=== PATIENT | female | born 1990 | race Caucasian/White ===

== ENCOUNTER 2023-11-06 09:27 | Emergency (ER) | payer OTHER, SELFPAY ==
[2023-11-06 09:49] VITALS: BP 124/83; PULSE 108; RESP 16; TEMP 36.8; O2SAT 100
--- NOTE | 2023-11-06 09:52 | ED.URI ---
HPI - URI/Sore Throat General Chief Complaint: Upper Respiratory Infection Stated Complaint: body aches,it hurts to swallow Time Seen by Provider: 11/06/23 09:52 Source: patient Mode of arrival: ambulatory Limitations: no limitations History of Present Illness HPI Narrative: Beth is a 33-year-old female patient presenting to the clinic today with complaints of body aches and sore throat x3 days. She reports no known fever. MD elicited complaint: sore throat and other (Body aches) Related Data Home Medications Medication Instructions Recorded Confirmed duloxetine 60 mg capsule,delayed mg PO 11/06/23 release lisdexamfetamine 20 mg capsule mg 11/06/23 vortioxetine 10 mg tablet mg 11/06/23 (Trintellix) Allergies Allergy/AdvReac Type Severity Reaction Status Date / Time No Known Allergies Allergy Verified 11/06/23 09:57 Review of Systems Review of Systems: Pertinent positives per HPI. Patient denies any fever, chills, rash, headache, visual changes, dizziness, cough, shortness of breath, chest pain, palpitations, nausea, vomiting, diarrhea, constipation, abdominal pain, or any urinary issues. [facility] Comments At the time of my signature, I reviewed and agree with the nursing past medical, surgical, social, and family history. There is no relevant family history pertinent to the patient complaint. Exam Narrative: General: Well-developed, well nourished, in no apparent distress Head: Normocephalic, atraumatic Eyes: Pupils equally round and reactive to light bilaterally, EOM intact, sclera and conjunctive clear, no discharge, lids normal Ears: TMs intact and clear, ear canals clear, no drainage, grossly hearing normal. Nose: Nares patent, no discharge, no inflammation, no sinus tenderness. Mouth: Oral pharynx red with bilateral tonsillar enlargement and exudate without lesions or masses, good dentition, MMM. Neck: Supple, trachea midline, enlargement of anterior cervical nodes, no thyroid masses or goiter palpable. Cardio: Regular rate and rhythm, s1 and s2 normal, no murmur appreciated. Resp: Clear to auscultation bilaterally, no rhonchi, rales, wheezing or rubs Course Course Emergency Course: Portions of this record may have been created with voice recognition software. Level of Care: Express Care Visit Vital Signs Vital signs: Vital Signs Temperature 36.8 C 11/06/23 09:49 Pulse Rate 108 H 11/06/23 09:49 Respiratory Rate 16 11/06/23 09:49 Blood Pressure 124/83 11/06/23 09:49 Pulse Oximetry 100 11/06/23 09:49 Temperature 36.8 C 11/06/23 09:49 Pulse Rate 108 H 11/06/23 09:49 Respiratory Rate 16 11/06/23 09:49 Blood Pressure 124/83 11/06/23 09:49 Pulse Oximetry 100 11/06/23 09:49 Vital signs reviewed MDM - URI/Sore Throat MDM Narrative Medical decision making narrative: At the time of visit patient is resting comfortably on the exam table. Patient appears to be nontoxic. Supportive measures were discussed with the patient and they voiced understanding discharge instructions and agrees to treatment plan. Return precautions reviewed Differential Diagnosis Differential diagnosis: Likely upper respiratory infection, otitis media, sinusitis, viral infection, bronchitis, influenza, pharyngitis and other (COVID) Discharge Plan Discharge Clinical Impression: Acute streptococcal pharyngitis Patient Disposition: Home, Self-Care Condition: Stable Instructions: Antibiotic Form, Strep Throat (ED) Additional Instructions: Strep test was positive. Take prescription medications only as prescribed-amoxicillin Change your toothbrush and 24 hours after initiation of the antibiotics Increase fluids and stay well hydrated Tylenol/motrin for pain/fever Flonase and OTC antihistamines as directed Vicks vapor rub to open sinuses Sinus rinses for congestion Cepacol spray, cough drops, throat lozenges, warm tea with honey/lemon, ga
== END 2023-11-06 10:12 | disposition home or self-care (01) ==
PROVIDERS: Emergency Provider Nurse Practitioner Family; PCP Family Medicine
DX: J02.0 Streptococcal pharyngitis (principal)
CPT/HCPCS: 87880; 99213; G0463

== ENCOUNTER 2023-11-24 16:05 | Emergency (ER) | payer OTHER, SELFPAY ==
--- NOTE | 2023-11-24 16:07 | ED.NAVMDI ---
HPI - Nausea/Vomiting/Diarrhea General Chief complaint: Dizziness Stated complaint: NAUSEA/DIZZY Time Seen by Provider: 11/24/23 16:07 Source: patient and RN notes reviewed History of Present Illness HPI Narrative: Patient is a 33-year-old female who presents to urgent care with complaints of loose stools for the last 3 days and some dizziness and nausea that started today. Patient states after going her symptoms she checked her blood pressure and her blood pressure was high. Patient does not have a history of high blood pressure however she has recently been unable to get her Vyvanse for the last month and a half and was taken off the medication cold turkey due to inability to find the medication at the pharmacy. Patient states she has had heightened stress and anxiety since being off the medication and has been taking the Cymbalta as directed. Patient is tearful. Denies any abdominal pain or discomfort. Denies any vomiting. No other acute complaints. Patient aware of the plan of care. Some parts of this dictation were generated by voice recognition software and may contain typographical and/or grammatical inaccuracies. Related Data Home Medications Medication Instructions Recorded Confirmed duloxetine 60 mg capsule,delayed 60 mg PO DAILY 11/06/23 11/06/23 release lisdexamfetamine 20 mg capsule 20 mg PO DAILY 11/06/23 11/06/23 vortioxetine 10 mg tablet 10 mg PO DAILY 11/06/23 11/06/23 (Trintellix) Allergies Allergy/AdvReac Type Severity Reaction Status Date / Time No Known Allergies Allergy Verified 11/24/23 16:30 Review of Systems Review of Systems: CONSTITUTIONAL: Denies fever, chills, or sweats. EYES: Denies visual changes, redness, or discharge. ENT: Denies rhinorrhea, congestion, sore throat, or otalgia. CARDIOVASCULAR: Denies chest pain, palpitations, or edema. Reports of hypertension RESPIRATORY: Denies cough or dyspnea. GASTROINTESTINAL: Reports of intermittent nausea and loose stools GENITOURINARY: Denies dysuria or hematuria. SKIN: Denies rash or itching. MUSCULOSKELETAL: Denies back pain, joint pain, or myalgia. NEUROLOGIC: Denies headache, numbness, or weakness. Reports of intermittent dizziness All other systems reviewed are negative, except as documented in HPI. [facility] Comments At the time of my signature, I reviewed and agree with the nursing past medical, surgical, social, and family history. There is no relevant family history pertinent to the patient complaint. Exam Narrative: GENERAL: This is a well-nourished, well-developed patient, in no apparent distress. HEAD: normocephalic, atraumatic. EYES: PERRL. Sclera clear/white. Vision is grossly intact. EARS: External ears normal, auditory canals clear and without drainage, TMs normal without perforation. Hearing grossly intact. NOSE: External nose normal with no obvious nasal discharge, nares without redness, no rhinorrhea. THROAT: Mucous membranes moist NECK: Neck supple CARDIOVASCULAR: Regular rate and rhythm without RESPIRATORY: Clear to auscultation. Breath sounds equal bilaterally. No wheezes, rales, or rhonchi. GASTROINTESTINAL: Abdomen soft, non-tender, nondistended. Bowel sounds are active. SKIN: warm, intact with no suspicious lesions or rash, good texture and turgor. NEURO: awake, alert, and oriented to person, place and time. There were no obvious focal neurologic abnormalities. EXTREMITIES: No clubbing, cyanosis, or edema. Course Course Level of Care: Express Care Visit Vital Signs Vital signs: Vital Signs Temperature 98.1 F 11/24/23 16:18 Pulse Rate 88 11/24/23 16:18 Respiratory Rate 16 11/24/23 16:18 Blood Pressure 154/93 H 11/24/23 16:18 Pulse Oximetry 100 11/24/23 16:18 Temperature 98.1 F 11/24/23 16:18 Pulse Rate 88 11/24/23 16:18 Respiratory Rate 16 11/24/23 16:18 Blood Pressure 154/93 H 11/24/23 16:18 Pulse Oximetry 100 11/24/23 16:18 Reviewed- Patient is inf
[2023-11-24 16:18] VITALS: BP 154/93; PULSE 88; RESP 16; TEMP 36.7; O2SAT 100
== END 2023-11-24 17:00 | disposition home or self-care (01) ==
PROVIDERS: Emergency Provider Nurse Practitioner Family; PCP Family Medicine
DX: F41.9 Anxiety disorder, unspecified (principal); F90.9 Attention-deficit hyperactivity disorder, unspecified type
CPT/HCPCS: 99213; G0463

== ENCOUNTER 2024-04-16 12:03 | Emergency (ER) | payer OTHER, SELFPAY ==
[2024-04-16 12:09] VITALS: BP 124/85; PULSE 102; RESP 16; TEMP 36.9; O2SAT 98
--- NOTE | 2024-04-16 12:18 | ED.URI ---
HPI - URI/Sore Throat General Chief Complaint: Upper Respiratory Infection Stated Complaint: Strep Symptoms Time Seen by Provider: 04/16/24 12:15 Source: patient Mode of arrival: ambulatory Limitations: no limitations History of Present Illness HPI Narrative: Esha is a 34-year-old female patient presenting to the clinic today with complaints of sore throat, headache, fever, and body aches. She reports that time started yesterday. Her daughter was diagnosed with strep this week. MD elicited complaint: fever, sore throat and other (Headache) Related Data Home Medications Medication Instructions Recorded Confirmed duloxetine 60 mg capsule,delayed 60 mg PO DAILY 11/06/23 11/06/23 release lisdexamfetamine 20 mg capsule 20 mg PO DAILY 11/06/23 11/06/23 vortioxetine 10 mg tablet 10 mg PO DAILY 11/06/23 11/06/23 (Trintellix) Allergies Allergy/AdvReac Type Severity Reaction Status Date / Time No Known Allergies Allergy Verified 11/24/23 16:30 Review of Systems Review of Systems: Pertinent positives per HPI. Patient denies any fever, chills, rash,visual changes, dizziness, cough, shortness of breath, chest pain, palpitations, nausea, vomiting, diarrhea, constipation, abdominal pain, or any urinary issues. [facility] Comments At the time of my signature, I reviewed and agree with the nursing past medical, surgical, social, and family history. There is no relevant family history pertinent to the patient complaint. Exam Narrative: General: Well-developed, well nourished, in no apparent distress Head: Normocephalic, atraumatic Eyes: Pupils equally round and reactive to light bilaterally, EOM intact, sclera and conjunctive clear, no discharge, lids normal Ears: TMs intact and clear, ear canals clear, no drainage, grossly hearing normal. Nose: Nares patent, no discharge, no inflammation, no sinus tenderness. Mouth: Oral pharynx red without lesions or masses, good dentition, MMM. Neck: Supple, trachea midline, no enlargement of anterior or posterior cervical nodes, no thyroid masses or goiter palpable. Cardio: Regular rate and rhythm, s1 and s2 normal, no murmur appreciated. Resp: Clear to auscultation bilaterally, no rhonchi, rales, wheezing or rubs Course Course Emergency Course: Portions of this record may have been created with voice recognition software. Level of Care: Express Care Visit Vital Signs Vital signs: Vital Signs Temperature 36.9 C 04/16/24 12:09 Pulse Rate 102 H 04/16/24 12:09 Respiratory Rate 16 04/16/24 12:09 Blood Pressure 124/85 04/16/24 12:09 Pulse Oximetry 98 04/16/24 12:09 Temperature 36.9 C 04/16/24 12:09 Pulse Rate 102 H 04/16/24 12:09 Respiratory Rate 16 04/16/24 12:09 Blood Pressure 124/85 04/16/24 12:09 Pulse Oximetry 98 04/16/24 12:09 Vital signs reviewed MDM - URI/Sore Throat MDM Narrative Medical decision making narrative: At the time of visit patient is resting comfortably on the exam table. Patient appears to be nontoxic. Labs: Strep test was positive in the clinic today. Plan: I suspect patient has strep pharyngitis. Prescription for amoxicillin was sent to the pharmacy. Supportive measures were discussed with the patient and they voiced understanding discharge instructions and agrees to treatment plan. Return precautions reviewed Differential Diagnosis Differential diagnosis: Likely upper respiratory infection, otitis media, sinusitis, viral infection, bronchitis, influenza, pharyngitis and other Discharge Plan Discharge Clinical Impression: Acute streptococcal pharyngitis Patient Disposition: Home, Self-Care Condition: Stable Instructions: Antibiotic Form, Strep Throat (ED) Additional Instructions: Strep test was positive in the clinic today. Take prescription medications only as prescribed-amoxicillin Change your toothbrush in 24 hours after initiation of the antibiotics Increase fluid
== END 2024-04-16 12:27 | disposition home or self-care (01) ==
PROVIDERS: Emergency Provider Nurse Practitioner Family; PCP Family Medicine
DX: J02.0 Streptococcal pharyngitis (principal); F90.9 Attention-deficit hyperactivity disorder, unspecified type
CPT/HCPCS: 87880; 99213; G0463

== ENCOUNTER 2024-08-14 17:35 | Emergency (ER) | payer OTHER, SELFPAY ==
--- NOTE | ~2024-08-14 | XR_ITS ---
XR ankle RT min 3V Ordering provider: Brooek Wilhelm APRN History: . right lateral foot and ankle pain fell off curb today . Comparison: None. FINDINGS: BONES: No acute fracture or dislocation. Small bony fragment is seen near to the lateral malleolus mo st likely old fracture. Clinical correlation and follow-up advised. JOINT SPACES: Normal. SOFT TISSUES: Normal. IMPRESSION: No definite acute osseous abnormality of the right ankle. Small bony fragment seen near to the latera l malleolus tip most likely old fracture. Clinical correlation for tenderness in the area and follow- up is advised. Reviewed, dictated and finalized at location A. IMPRESSION: No definite acute osseous abnormality of the right ankle. Small bony fragment s een near to the lateral malleolus tip most likely old fracture. Clinical correl ation for tenderness in the area and follow-up is advised.
--- NOTE | ~2024-08-14 | XR_ITS ---
XR foot RT min 3V Ordering provider: Brooke Wilhelm APRN History: . right lateral foot/ ankle pain. fell off curb today . Comparison: None. FINDINGS: BONES: No definite acute fracture or dislocation. Well-corticated bone fragment is seen near to the c uboid bone which is most likely an old fracture or sesamoid bone. Evaluation for tenderness in the ar ea follow-up is advised. JOINT SPACES: Normal. No tarsal coalition. SOFT TISSUES: Normal. IMPRESSION: No definite acute osseous abnormality of the right foot. Small bony fragment near to the cuboid bone may be sesamoid bone. Follow-up advised. Reviewed, dictated and finalized at location A. IMPRESSION: No definite acute osseous abnormality of the right foot. Small bony fragment ne ar to the cuboid bone may be sesamoid bone. Follow-up advised.
--- NOTE | 2024-08-14 17:38 | ED.LOWEXIN ---
HPI - Extremity Injury (Lower) General Chief Complaint: Extremity Injury, Lower Stated Complaint: INJURED R ANKLE/FOOT Source: patient and RN notes reviewed Mode of arrival: ambulatory Limitations: no limitations History of Present Illness HPI Narrative: Patient is a 34-year-old female who presents to the [facility] with complaints of right foot pain. 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 There is notable swelling to the dorsum of the right foot along with bruising. Patient states that the pain is exacerbated with bearing weight and ambulation. Sensation is intact. She is neurovascularly intact distally. Related Data Home Medications Medication Instructions Recorded Confirmed duloxetine 60 mg capsule,delayed 60 mg PO DAILY 11/06/23 08/14/24 release dextroamphetamine-amphetamine ER 5 5 mg PO DAILY 04/16/24 08/14/24 mg 24hr capsule,extend release Allergies Allergy/AdvReac Type Severity Reaction Status Date / Time No Known Allergies Allergy Verified 08/14/24 17:47 Review of Systems Review of Systems: CONSTITUTIONAL: Denies fever, chills, or sweats. EYES: Denies visual changes, redness, or discharge. ENT: Denies otalgia and sore throat CARDIOVASCULAR: Denies chest pain, palpitations, or edema. RESPIRATORY: Denies cough or dyspnea. GASTROINTESTINAL: Denies abdominal pain, nausea, vomiting, or diarrhea. GENITOURINARY: Denies dysuria or hematuria. SKIN: Denies rash or itching. MUSCULOSKELETAL: Denies back pain. Reports right foot and ankle pain. NEUROLOGIC: Denies headache, numbness, or weakness. Pertinent positives per HPI. [facility] Comments At the time of my signature, I reviewed and agree with the nursing past medical, surgical, social, and family history. There is no relevant family history pertinent to the patient complaint. Exam Narrative: GENERAL: This is a well-nourished, well-developed patient, in no apparent distress. HEAD: normocephalic, atraumatic. EYES: PERRL. Sclera clear/white. Vision is grossly intact. EARS: External ears normal, auditory canals clear and without drainage, TMs normal without perforation. Hearing grossly intact. NOSE: External nose normal with no obvious nasal discharge, nares without redness, no rhinorrhea. THROAT: Mucous membranes moist, posterior pharynx clear. NECK: Neck supple, non-tender without lymphadenopathy, masses or thyromegaly. CARDIOVASCULAR: Regular rate and rhythm without murmurs, gallops, or rubs. RESPIRATORY: Clear to auscultation. Breath sounds equal bilaterally. No wheezes, rales, or rhonchi. GASTROINTESTINAL: Abdomen soft, non-tender, nondistended. Bowel sounds are active. No hepato-splenomegaly, or palpable masses. No guarding. SKIN: warm, intact with no suspicious lesions or rash, good texture and turgor. NEURO: awake, alert, and oriented to person, place and time. There were no obvious focal neurologic abnormalities. EXTREMITIES: Right foot tenderness. Swelling and bruising noted to the dorsum of the lateral aspect of the right foot. Neurovascular and motor status intact. BACK: Nontender without deformity or crepitance. No flank tenderness. Course Course Level of Care: Express Care Visit Vital Signs Vital signs: Vital Signs Temperature 98.2 F 08/14/24 17:44 Pulse Rate 98 08/14/24 17:44 Respiratory Rate 16 08/14/24 17:44 Blood Pressure 136/98 H 08/14/24 17:44 Pulse Oximetry 99 08/14/24 17:44 Oxygen Delivery Room Air 08/14/24 17:44 Temperature 98.2 F 08/14/24 17:49 Pulse Rate 98 08/14/24 17:49 Respiratory Rate 16 08/14/24 17:49 Blood Pressure 136/98 H 08/14/24 17:49 Pulse Oximetry 99 08/14/24 17:49 Oxygen Delivery Room Air 08/14/24 17:49 Reviewed Procedures Orthopedic Splinting/Casting Injury #1: Splinting/Casting Date: 08/14/24 Splinting/Casting Time: 18:25 Si
[2024-08-14 17:44] VITALS: BP 136/98; PULSE 98; RESP 16; TEMP 36.8; O2SAT 99
[2024-08-14 17:49] VITALS: BP 136/98; PULSE 98; RESP 16; TEMP 36.8; O2SAT 99
== END 2024-08-14 18:33 | disposition home or self-care (01) ==
PROVIDERS: Emergency Provider Nurse Practitioner; PCP Family Medicine
DX: S93.601A Unspecified sprain of right foot, initial encounter (principal); X50.9XXA Other and unspecified overexertion or strenuous movements or postures, initial encounter; F90.9 Attention-deficit hyperactivity disorder, unspecified type
CPT/HCPCS: 73610; 73630; 99213; G0463